=== PATIENT | male | born 1990 | race Caucasian/White ===

== ENCOUNTER 2021-10-08 13:46 | Emergency (ER) | payer OTHER, SELFPAY ==
--- NOTE | ~2021-10-08 | XR_ITS ---
EXAMINATION: XR KNEE, RIGHT CLINICAL INFORMATION: Pain COMPARISON: None TECHNIQUE: Four views of the right knee. FINDINGS: There is no acute fracture or dislocation. Bony density at the insertion of the infrapatellar ligament with some mild increased soft tissue density anterior. A smaller trace joint effusion cannot be excluded. XR/XR knee RT 3V IMPRESSION: No acute fracture or dislocation. Consider [place]-Schlatter's disease. There does appear to be a small joint effusion
[2021-10-08 14:01] VITALS: BP 148/95; PULSE 103; RESP 18; TEMP 36.8; O2SAT 96; BMI 31.6
--- NOTE | 2021-10-08 15:17 | ED_ITS ---
HPI - Extremity Injury (Lower) General Chief Complaint: Extremity Injury, Lower Stated Complaint: r knee inj non work related Time Seen by Provider: 10/08/21 14:21 Source: patient Mode of arrival: ambulatory Limitations: no limitations History of Present Illness HPI Narrative: patient presents emergency department for evaluation of right knee pain. He states yesterday while getting out of the shower he slipped causing his lower leg to twist, denies any fall or striking of the knee against anything. He had no pain last night. This morning upon awakening he had pain to the right knee with weight-bearing. States it is difficult to ambulate due to the pain. Denies any pain while at rest. Denies any numbness or tingling of the extremity. No pain above the knee or below the knee. Has not taken any medi cation for his pain at this time. Related Data Previous Rx's Medication Instructions Recorded naproxen 500 mg tablet 500 mg PO BID PRN pain 7 days #14 10/08/21 tabs Allergies Allergy/AdvReac Type Severity Reaction Status Date / Time No Known Allergies Allergy Verified 10/08/21 14:00 [No Known Allergies*] Review of Systems Review of Systems: Musculoskeletal: positive knee pain Yes all other systems are reviewed and are negative PMFSH Past Medical History Attestation statement: The following information was validated with the patient. Source: old records reviewed Social History Social History Patient Tobacco Use Status: Current everyday Tobacco user Advance Directives: No Advance Directives Information Provided: No Physical Exam Vital Signs: Vital Signs: Last Vital Signs Temp 98.3 F 10/08/21 14:01 Pulse 103 H 10/08/21 14:01 Resp 18 10/08/21 14:01 BP 148/95 H 10/08/21 14:01 Pulse Ox 96 10/08/21 14:01 O2 Del Method 10/08/21 14:01 BMI result Body Mass Index 31.6 Vital signs have been reviewed as normal and appeared to be correct. Blood pressure normal.? Heart rate normal.? Respiration rate normal. Temperature normal.? Oxygen saturation normal. Appearance: Alert.?Oriented to person, place and time. No acute distress.?Normal affect. Eyes: Pupils equal, round and reactive to light.? ENT: Pharynx normal.?? Neck: Normal inspection.? Neck supple.?? CVS: Heart sounds normal. Normal heart rate and rhythm.? Pulses normal.?? Respiratory: No respiratory distress.? Lung sounds clear to auscultation bilaterally?? Abdomen: Soft and non-tender. Skin: Skin warm and dry.? Normal skin color.? Extremities: No lower extremity edema.? No calf ttp. reason knee with no obvious deformity, effusion, crepitus, erythema, or bruising. No laxity, posterior drawer test negative, anterior drawer test negative, valgus and varus stress test negative, 2+ DP/ PT pulses present. Neuro: Moves all extremities spontaneously. Sensation intact bilaterally. CN II- XII intact. No focal neuro deficits. Ambulates with normal steady gait. Course Course Course Narrative: Patient is a 30-year-old male no significant past medical history presenting to emergency department for evaluation of traumatic right knee pain. XR reveals no acute fracture dislocation, small joint effusion. not consistent with septic arthritis. Discussed with patient cannot completely exclude ligamentous injury, x-ray imaging is not the preferred modality for this, however patient is stable for discharge home, will use Castro bandage for compression, prescription for naproxen sent to pharmacy to be used in addition to Tylenol for pain, crutches provided, advised outpatient follow-up with orthopedics if pain is not improving within 1 week. Discussed reasons that he should return back to the emergency department. All questions answered and patient was discharged home in stable condition. MDM - Extremity Injury (Lower) Medical Records Attestation: I reviewed the patient's medical records. Imaging Data XR knee: Radiologist's impression: XR/XR knee RT 3V IMPRESSION: No acute fracture or dislocation. Consider [place]-Schlatter's disease. There does appear to be a small joint effusion Discharge Plan Discharge Clinical Impression: Knee sprain, Effusion of knee Patient Disposition: Home, Self-Care Instructions: Knee Sprain (ED) Additional Instructions: As we discussed the x-ray of the knee showed no fracture or dislocation. There is a small effusion, which is a buildup of fluid in the joint space. You had been given a new prescription for naproxen to take for pain, please do not take additional [id number] ibuprofen / Motrin, Aleve, or aspirin while taking this medication. You may take Tylenol in addition to this medication. Use the Castro bandage for compression, please apply ice, and be sure to rest and elevate your leg when possible. Use the crutches so that you can bear weight as tolerated. If your pain is not improving within 1 week, please contact Orthopedics to schedule a follow-up visit. Please feel free to return to the emergency department any new or worsening symptoms or concerns. Prescriptions: New naproxen 500 mg tablet 500 mg PO BID PRN (Reason: pain) 7 Days Qty: 14 0RF Referrals: Kathe Pena PA-C [Physician Client Retention Specialist] - 1 week
[2021-10-08] MEDS: Acetaminophen 325 MG TABLET 975 MG PO (15:29)
[2021-10-08] MEDS: NaPROXEN 500 MG TABLET PO (15:30)
== END 2021-10-08 18:00 | disposition home or self-care (01) ==
PROVIDERS: Emergency Provider Emergency Medicine; PCP Internal Medicine
DX: S83.91XA Sprain of unspecified site of right knee, initial encounter (principal); M25.461 Effusion, right knee; X50.1XXA Overexertion from prolonged static or awkward postures, initial encounter; Y93.9 Activity, unspecified; Y92.002 Bathroom of unspecified non-institutional (private) residence as the place of occurrence of the external cause; Y99.9 Unspecified external cause status
CPT/HCPCS: 73562; 99283

== ENCOUNTER 2024-11-20 21:31 | Emergency (ER) | payer OTHER, SELFPAY ==
[2024-11-20 22:04] VITALS: BP 143/94; PULSE 94; RESP 17; TEMP 36.6; O2SAT 97; BMI 31.5
--- NOTE | 2024-11-21 01:28 | PC.NURSE ---
Pt not visualized in WR when called. Called phone number on file with no answer
--- OUTSIDE RECORDS SUMMARY | 2024-11-21 01:35 | XMS_ITS | Clinical Summary ---
Author Organization [address] Address [address] [place] [id number] Phone Care Team Providers Care Paper Mill Manager Name Role Phone Susy Ocasio MD Primary Care Provider [phone] Allergies No known active allergies Medications diphenhydrAMINE (BENADRYL) 25 mg capsuleIndicati ons:Nasal septal erosion Take 1 capsule (25 mg total) by mouth at bedtime as needed for itching. Active Active Problems Problem Noted Date Diagnosed Date ETOHism ([facility] V24, [facility] V28) 05/22/2019 PTSD (post-traumatic stress disorder) 01/27/2015 Anxiety 11/26/2014 Attention deficit hyperactivity disorder 015 Depression 11/26/2014 Folliculitis 11/26/2014 Immunizations Name Administration Dates Next Due Influenza Quadravalent, MDCK , 0.5ml, preservative free (Flucelvax) 6mo and older 03/02/2022 Tdap Tetanus diptheria acell ular pertussis (Boostrix; Adacel) 7yo and older 11/26/2014 Medical History Medical History Date Comments PTSD (post-traumatic stress disorder) 01/27/2015 DX:PTSD (post-traumatic stress disorder) Family History Medical History Relation Name Comments Asthma Brother Bipolar disorder Father Other: Other Mother no info, drugs , heroin Relation Name Status Comments Brother Father Alive mental health i ssues Mother Alive mental health i ssues Social History Tobacco Use Types Packs/Day Years Used Date Smoking Tobacco: Every Day Cigarettes Smokeless Tobacco: Never Alcohol Use Standard Drinks/Week Comments Yes 0 (1 standard drink = 0.6 oz pur e alcohol) Sex and Gender Information Value Date Recorded Sex Assigned at Not on file Legal Sex Male 9:49 PM EST Gender Identity Not on file Sexual Orientation Not on file Obstetrics History Last Filed Vital Signs Vital Sign Reading Time Taken Comments Blood Pressure 126/74 07/30/2024 9:33 AM EDT Pulse 84 07/30/2024 9:33 AM EDT Temperature 36.6 C (97.8 F) 07/30/2024 9:33 AM EDT Respiratory Rate 14 07/30/2024 9:33 AM EDT Oxygen Saturation 99% 07/30/2024 9:33 AM EDT Inhaled Oxygen Concentration - - Weight 82.3 kg (181 lb 6.4 oz) 07/30/2024 9:33 A M EDT Height 162.6 cm (5' 4 ) 07/30/2024 9:33 AM EDT Body Mass Index 31.14 07/30/2024 9:33 AM EDT Plan of Treatment Health Maintenance Due Date Last Done Comments Hepatitis A Vaccines (1 of 2 - Risk 2-dose series) 2008 Hepatitis B Vaccines (1 of 3 - 19+ 3-dose series) 2008 Pneumococcal Vaccine: Pediat rics (0 to 5 Years) and At-Risk Patients (6 to 49 Years) (1 of 2 - PCV) 2008 Social Influencers of Health Screening 04/09/2022 COVID-19 Vaccine (1 - 2023-2 5 season) 2023 Depression Screening 05/01/2024 DTaP,Tdap,and Td Vaccines (2 - Td or Tdap) 11/26/2024 11/26/2014 Influenza Vaccine (#1) 2024 03/02/2022 Cholesterol Screening (Lipid Panel) 03/04/2027 03/04/2022 HIV Screening Completed 03/04/2022 Hepatitis C Screening Completed 03/04/2022 HIB Vaccines Aged Out No longer eligi ble based on patient's age to complete this topic HPV Vaccines Aged Out No longer eligi ble based on patient's age to complete this topic IPV Vaccines Aged Out No longer eligi ble based on patient's age to complete this topic MMR Vaccines Aged Out No longer eligi ble based on patient's age to complete this topic Meningococcal ACWY Vaccine Aged Out N o longer eligible based on patient's age to complete this topic Meningococcal B Vaccine Aged Out No l onger eligible based on patient's age to complete this topic RSV Immunization Patients Un diane 20 months Aged Out No longer eligible b ased on patient's age to complete this topic Varicella Vaccines Aged Out No longer eligible based on patient's age to complete this topic Procedures Procedure Name Priority Date/Time Associated Diagnosis Comments HEPATITIS C SCREENING Routine 03/04/2022 HIV SCREENING Routine 03/04/2022 LIPID PANEL Routine 03/04/2022 from Last 3 Months or Most Recently Relevant to Health Maintenance Results * HIV Screening (03/04/2022) HIV Screening abstracted [facility] Provider HEALTH MAINTENANCE Final Result * Hepatitis C Screening (03/04/2022) Hepatitis C Screening abstracted [facility] Provider HEALTH MAINTENANCE Final Result * Lipid panel (03/04/2022) LDL/HDL Ratio 3 0 - 4 Triglycerides 75 0 - 150 mg/dL Cholesterol 127 0 - 200 mg/dL HDL 50 >=40 mg/dL LDL Cholesterol 62 0 - 100 mg/dL Blood Venous blood specimen / Unknown [facility] Provider LAB BLOOD ORDERABLES Marie l Result from Last 3 Months or Most Recently Relevant to Health Maintenance Insurance [facility] [employer] [facility] Care Teams Paper Mill Manager Relationship Specialty Start Date End Date Susy Ocasio MD [address] [place] [phone] PCP - General Internal Medicine 10/17/14
== END 2024-11-21 01:57 | disposition left against medical advice (07) ==
PROVIDERS: Emergency Provider Emergency Medicine; PCP Internal Medicine
DX: H92.02 Otalgia, left ear (principal); K02.9 Dental caries, unspecified
CPT/HCPCS: 99281